=== PATIENT | male | born 1965 | race Caucasian/White ===

== ENCOUNTER 2024-12-04 06:07 | Inpatient (IN) | payer OTHER, SELFPAY ==
[2024-12-04 03:47] VITALS: BP 164/104
--- NOTE | 2024-12-04 03:56 | ED.GENMED ---
History of Present Illness
General
Chief Complaint: Skin Problem
Time Seen by Provider: 12/04/24 03:55
History of Present Illness
History of Present Illness:
FOCUSED PAST MEDICAL HISTORY
- High blood pressure, diabetes
REVIEW OF OLD RECORDS
- No old records will review in [facility]
Note:
CHIEF COMPLAINT(S)
Skin discoloration and swelling of the legs and buttock.
HISTORY OF PRESENT ILLNESS
The patient is a 59-year-old male who presented with concerns of discoloration and swelling of the skin primarily at the distal lower extremities with some involvement at upper buttock and upper extremities. The onset of symptoms began after
spending approximately half an hour in a hot tub on Friday. The patient reported noticing skin changes later that evening, described as pink and purple discoloration, which he initially attributed to overexposure to chlorine. The condition has since
persisted, with the addition of blistering on the legs and swelling. The patient denied associated fever, blanching, or taking any new medications, including anticoagulants or antibiotics. He has been applying topical cortisone cream. The patient
also takes 800 mg of ibuprofen for back pain. He reported no tick bites or other contributory factors.
PHYSICAL EXAM
-General: Appears fairly comfortable
-HEENT: Moist oral mucosa
-Neck: Excellent chin to chest, no meningeal signs
-Chest: Borderline tachycardic
-Neurologic: Excellent strength all extremities, no obvious coordination deficits
-Psychiatric: Appropriate mental status, normal insight and judgement
-Extremities: Rather extensive peripheral to the lower extremities with some edema noted at the left ankle and increased purpuric lesions to the lateral aspect of the ankle
-Skin: Extensive petechial/purpuric rash predominantly in the lower extremities bilaterally even more so and with more purpleish discoloration and edema left ankle and foot, there is petechiae noted to the upper buttocks
PLAN
Blood tests were ordered to check platelet counts and other relevant parameters. Further evaluation to determine the cause of the skin changes and associated symptoms.
DIFFERENTIAL DIAGNOSIS
The Differential Diagnosis includes, in no particular order and is not limited to:
- Vasculitis
- Erythema multiforme
- Contact dermatitis
- Drug reaction
- Cellulitis
- Thrombocytopenic purpura
- Viral exanthema
- Heat-induced rash
- Allergic reaction
- Autoimmune disorder
- Henoch-Erik�nlein purpura
- Chlorine rash
MEDICAL DECISION MAKING
-Complexity of Data Reviewed: Chronic conditions affecting care were queried with no significant chronic conditions identified by the patient. Differential Diagnosis includes:
- Vasculitis
- Erythema multiforme
- Contact dermatitis
- Drug reaction
- Cellulitis
- Thrombocytopenic purpura
- Viral exanthema
- Heat-induced rash
- Allergic reaction
- Autoimmune disorder
-Data:
Category 1
- Blood tests were ordered to check platelets and other parameters.
-Risk:
- Consideration of further diagnostic testing to determine the underlying etiology of the skin symptoms.
- Monitoring for potential serious causes such as vasculitis or thrombocytopenic purpura.
LABS
- White count 13.8, hemoglobin normal at 15.2, platelets normal at 243
The patient's white blood cell count is high at 13.8 and he is borderline tachycardic. Therefore lactic and blood cultures obtained. Blood cultures pending and lactic is 1.1. C-reactive protein is elevated at 25. Glucose is 186 and the patient
is a diabetic. Exam is not consistent with simply hot tub folliculitis. We talked about the possibility of some sort of vasculitis such as HSP. Give IV steroids. As the symptoms are so severe, we will plan to keep in the hospital for continued
IV steroids and further management by hospitalist team.
Feel hot tub folliculitis/pseudomonal infection is less likely. Chlorine rash is still a possibility however the rash to the lower extremities are markedly significant. He also denies any significant pruritus. No meningeal signs to suggest
meningococcemia.
Phy Exam
Physical Exam
Physical Exam:
See HPI
Course
Orders/Labs/Results
Orders:
Orders
12/04/24 04:05
Urinalysis Reflex To Culture Urgent
12/04/24 04:06
CRP [C-Reactive Protein] Urgent
Complete Blood Count/With Diff Urgent
Comprehensive Metabolic Panel Urgent
ESR [Erythrocyte Sed Rate] Urgent
12/04/24 04:53
Lactic Acid Q4H
Comment: CANCEL 2nd LACTIC ACID IF 1st LACTIC ACID IS LESS THAN 2
Blood Culture Q30M
PHI Source: Blood/Venous
Specimen Description:
12/04/24 05:06
Dexamethasone Sod Phosphate [Decadron] 10 mg IV NOW STA
12/04/24 05:22
Blood Culture Q30M
PHI Source: Blood/Venous
Specimen Description:
12/04/24 05:51
Admit/Transfer Patient As Directed
Co-Sign Provider:
Level of Care: Inpatient admission
Assign to:: Medical/Surgical
Physician / Group: Ken
Diagnosis: Vasculitis / Rash
Reason for Hospitalization: Vasculitis / Rash
Expected length of stay greater than two midnights?: Yes
ELOS- Estimated Length of Stay in days: 3
I certify the patient meets the requirements for IP care: Yes
Code Status As Directed
Resuscitation Status: Full Code
PRN Pain Medication Management As Directed
May give lesser potent ordered pain med per pt: Yes
preference::
Protocol:: Medication orders for pain may be administered in a
manner that supports deferring to patient preference
when the pt is:
- Requesting an ordered lesser potent pain medication.
Least to most potent pain medications are defined
as: acetaminophen < NSAID < tramadol < opioids
(morphine, oxycodone, hydromorphone).
- Requesting a lesser dose of the same medication IF
ORDERED.
- Requesting a less intrusive route of administration
if both routes are prescribed by the provider (PO <
IV).
12/04/24 08:30
Lactic Acid Q4H
Comment: CANCEL 2nd LACTIC ACID IF 1st LACTIC ACID IS LESS THAN 2
Abnormal Lab Results
12/04/24
04:06
WBC 13.8 H 10^3/uL
(4.8-10.8)
MCH 31.1 H pg
(27.0-31.0)
Absolute Lymphs (auto) 6.0 H 10^3/uL
(1.2-3.4)
Absolute Monos (auto) 0.9 H 10^3/uL
(0.1-0.6)
Chloride 108 H mmol/L
(98-107)
BUN 23 H mg/dl
(9-20)
Glucose 186 H mg/dl
(70-99)
ALT 51 H U/L
(0-50)
Alkaline Phosphatase 135 H U/L
(38-126)
C-Reactive Protein 24.70 H mg/L
(0.0-10.00)
12/04/24 04:06
12/04/24 04:06
Vital Signs
Initial and Last Documented VS:
Initial Vital Signs
Temp Pulse Resp BP Pulse Ox
36.5 C 99 20 164/104 97
12/04/24 03:47 12/04/24 03:47 12/04/24 03:47 12/04/24 03:47 12/04/24 03:47
Last Documented Vital Signs
Temp Pulse Resp BP Pulse Ox
36.5 C 99 20 164/104 97
12/04/24 03:47 12/04/24 03:47 12/04/24 03:47 12/04/24 03:47 12/04/24 03:56
*Pulse Oximetry
SaO2: 97
Patient hypoxic: no
*Critical Care Note
Total Time (30-74mins, 75-104mins- exclusive of procedures): Not Applicable
ED Attending Note
-
Portions of this chart may have been created with voice recognition software.� Occasional wrong word or��sound alike� substitutions may have occurred due to the inherent limitations of voice recognition software.
Discharge Plan
Departure
Patient Disposition: Admit
Date of Disposition: 12/04/24
Time of Disposition: 05:09
Presentation/result/management discussed w/ accepting MD/DO: Hospitalist
Patient with high blood pressure during this ER visit?: Yes
Discharge Problem:
Vasculitis
Interventions
Interventions:
*Risk Screen - Suicide Last Done: 12/04/24 03:47
*General Assessment Last Done: 12/04/24 03:47
*Neglect/Abuse Screening Last Done: 12/04/24 03:47
*ED- Fall Risk Assessment Last Done: 12/04/24 03:47
*ED COVID-19 Vaccine History Last Done: 12/04/24 03:47
ED-Skin Assessment Last Done: 12/04/24 04:00
[2024-12-04 04:17] LABS: Hematocrit 44.9 % (39.0-52.0); Hemoglobin 15.2 g/dL (13.0-18.0); Mean Corp Hgb Conc. 33.9 g/dL (33.0-37.0); Mean Corpuscular Volume 91.8 fL (80.0-94.0); Nucleated Red Blood Cells % 0 % (-); Platelet Count 243 10^3/uL (130-400); Red Cell Dist. Width 13.1 % (11.5-14.5)
[2024-12-04 04:54] LABS: ALT (SGPT) 51 U/L (0-50); AST (SGOT) 41 U/L (17-59); Albumin 4.1 g/dl (3.5-5.0); Alkaline Phosphatase 135 U/L (38-126); Blood Urea Nitrogen 23 mg/dl (9-20); Calcium 9.7 mg/dl (8.4-10.2); Carbon Dioxide 24 mmol/L (22-30); Chloride 108 mmol/L (98-107); Glucose 186 mg/dl (70-99); Potassium 4.4 mmol/L (3.5-5.1); Sodium 139 mmol/L (135-145); Total Protein 7.8 g/dl (6.3-8.2); eGFR > 60.00
[2024-12-04 04:57] LABS: C-Reactive Protein 24.70 mg/L (0.0-10.00)
[2024-12-04] MEDS: DECADRON 10 MG IV (05:22)
--- NOTE | 2024-12-04 05:56 | HPS.HSE ---
Family Physician
-
Family Physician:
Chief Complaint
-
LE Rash
History of Present Illness
Patient is a 59y M with PMH significant for hypertension and impaired glucose tolerance who presents to ED complaining of rash of both lower extremities. Patient states that he was in a hot tub on Friday evening for about 20-40 minutes total.
Upon entering the tub he had no symptoms, issues or complaints. Immediately after exiting, he noted a pink, spotted 'rash' at both ankles. He woke the next morning with darker skin lesions in slightly greater distribution. Over the next few days
his symptoms significantly increased. He developed dark purple discoloration of the skin on both legs spreading across the dorsum of the foot and across the anterior wesley. He describes a burning sensation - mostly in the L ankle.
There is swelling of the L foot and some blister formation at the lateral aspect of the L ankle which are not present on the RLE.
Patient has no systemic complaints. No fevers / chills, N/V. No severe pain in the LEs.
He denies any prior history of similar symptoms, rashes.
He states that he has been applying hydrocortisone cream and Neosporin at home with no significant improvement in his symptoms.
Patient does not see physicians on a regular basis.
He was prescribed a medications for HTN some time ago, but stopped this as it made him feel 'woozy'.
He currently takes no prescription medications. He takes ibuprofen and Benadryl PRN.
Medical History
Past Medical History
Past Medical History: Reports Other
Additional Past Medical History:
Hypertension
Impaired Glucose Tolerance
Generalized Anxiety / Insomnia
Past Surgical History: Reports None
Social History
Tobacco: Smoker (Current every day smoker. Approx 1 ppd for > 30 pack year total use.)
Alcohol: None
Drug: None
Family History
Family History: Not pertinent
Allergies / Home Medications
Allergies reflects when Allergies were last updated in [facility].
Home Medications with original date entered in [facility]
Allergy/Medication List:
Allergies
Allergy/AdvReac Type Severity Reaction Status Date / Time
No Known Allergies Allergy Verified 12/04/24 03:46
Home Medications
No Meds [No Current Medications] 12/04/24
Review of Systems
-
History Source: Patient
A 12 point ROS was completed and negative except as noted: Yes
Constitutional: Denies Fever, Fatigue or Chills
Respiratory: Denies Cough or Trouble Breathing
Cardiac: Denies Chest Pain or Palpitations
Abdomen/GI: Denies Abdominal Pain, Nausea, Vomiting, Diarrhea, Bloody Stools or Black Stools
: Denies Dysuria, Frequency or Flank Pain
Musculoskeletal: Reports Joint Pain (L ankle pain) and Edema
Skin: Reports Rash; Denies Itching
Neurological: Denies Dizzy or Headache
Physical Exam
Vital Signs
Vital Signs
Temp Pulse Resp BP Pulse Ox
97.7 F 99 20 164/104 97
12/04/24 03:47 12/04/24 03:47 12/04/24 03:47 12/04/24 03:47 12/04/24 03:56
Physical Exam
General: Other (59y M in no acute distress.)
HEENT: Moist mucous membranes, PERRLA and Other (Poor dentition.)
Respiratory: Clear; No Wheezes, Rales or Rhonchi
Cardiac: S1/S2 and Regular Rhythm; No Murmur
GI: Soft, Non Tender, Non Distended and Normal Bowel Sounds
Musculoskeletal: No Clubbing, No Cyanosis and Other (1+ edema L foot)
Skin: Rash (Scattered, raised skin lesions / folliculitis of L > R arm, thighs, buttocks areas.) and Other (Confluent ecchymosis / purpura b/l anterior shins with petechiae, few raised / dark lesions throughout. Not tender except at lateral L ankle
where there are also few, small bullae. No ulcerated lesions.)
Neuro: AO x 3
Laboratory Results
-
12/04/24 04:06
12/04/24 04:06
Laboratory Results
Lactic Acid 1.1 mmol/L (0.7-2.0) 12/04/24 04:53
Total Bilirubin 0.7 mg/dl (0.2-1.3) 12/04/24 04:06
AST 41 U/L (17-59) 12/04/24 04:06
ALT 51 U/L (0-50) H 12/04/24 04:06
Alkaline Phosphatase 135 U/L (38-126) H 12/04/24 04:06
Impression/Plan
-
A/P: Patient is a 59y M with PMH significant for hypertension and impaired glucose tolerance who presents to ED complaining of rash of both LEs.
Bilateral LE Rash
- Admit for further evaluation and treatment.
- Some areas on thighs / upper extremities (and initial description of LE per patient) appear consistent with folliculitis; however, current LE skin changes do not.
- Appearance of b/l LEs seems most c/w vasculitic process.
- No systemic infectious symptoms and no localized, severe pain to suggest necrotizing infectious process.
- CRP moderately elevated. ESR pending. Add ANCA.
- Initial dose of IV steroids given in the ED - continue with prednisone 40mg daily for now and follow for any clinical response.
- Patient may benefit from biopsy of the affected area for definitive diagnosis / guidance of treatment.
- Follow for any new / worsening symptoms or extension of currently affected area.
Benign Hypertension
- Patient notes that he stopped his HTN medication due to feeling 'woozy'. This was several years ago.
- BP elevated here in the ED.
- Follow for changes. Patient would likely benefit from standing medications for improved BP control.
Impaired Glucose Tolerance
- Follow glucose and cover with SSI if needed, especially while on systemic steroids.
- Check A1C.
DVT Prophylaxis: Lovenox
Code Status: Full
--- NOTE | 2024-12-04 07:38 | W.PN.HOSP.TC ---
Today's Communication/Plan
-
see A/P
Assessment / Plan
Assessment / Plan
HPI: 59 yo M with PMH significant for hypertension and impaired glucose tolerance who presented to ED complaining of rash of both lower extremities. Patient states that he was in a hot tub on Friday evening for about 20-40 minutes total. Upon
entering the tub he had no symptoms, issues or complaints. Immediately after exiting, he noted a pink, spotted 'rash' at both ankles. He woke the next morning with darker skin lesions in slightly greater distribution. Over the next few days his
symptoms significantly increased. He developed dark purple discoloration of the skin on both legs spreading across the dorsum of the foot and across the anterior wesley. He describes a burning sensation - mostly in the L ankle.
There is swelling of the L foot and some blister formation at the lateral aspect of the L ankle which are not present on the RLE.
Patient has no systemic complaints. No fevers / chills, N/V. No severe pain in the LEs.
He denies any prior history of similar symptoms, rashes.
He states that he has been applying hydrocortisone cream and Neosporin at home with no significant improvement in his symptoms.
Patient does not see physicians on a regular basis.
He was prescribed a medications for HTN some time ago, but stopped this as it made him feel 'woozy'.
He currently takes no prescription medications. He takes ibuprofen and Benadryl PRN.
A/P:
# Bilateral LE Rash, ? hot tub folliculitis with cellulitis vs vasculitis process
Initial description of LE per patient appears consistent with folliculitis; however, current LE skin changes appear more vasculitic
No systemic infectious symptoms and no localized, severe pain to suggest necrotizing infectious process.
CRP at 24, ESR WNL at 14
ANCA was sent, follow up
Initial dose of IV steroids given in the ED - continue with prednisone 40mg daily for now and follow for any clinical response.
Patient may benefit from biopsy of the affected area for definitive diagnosis / guidance of treatment.
Follow for any new / worsening symptoms or extension of currently affected area.
Start empiric Abx Vanc/Zosyn
ID CS
Wound care CS
# Benign Hypertension
Patient notes that he stopped his HTN medication due to feeling 'woozy'. This was several years ago.
BP elevated on admission, discussed with pt, agree with starting low dose Norvasc 2.5 mg daily
# Impaired Glucose Tolerance
Follow glucose and cover with SSI if needed, especially while on systemic steroids.
Check A1C.
DVT Prophylaxis: Lovenox SQ
Code Status: Full
Anticipated Discharge: > 48 hours
Subjective/Interval History
-
Date of Service: December 04, 2024
Objective Data
-
Labs:
Laboratory Results
12/04/24
04:06
WBC 13.8 H
Hgb 15.2
Hct 44.9
Plt Count 243
Sodium 139
Potassium 4.4
Chloride 108 H
Carbon Dioxide 24
BUN 23 H
Creatinine 0.8
Glucose 186 H
Calcium 9.7
Total Bilirubin 0.7
AST 41
ALT 51 H
Alkaline Phosphatase 135 H
Vital Signs:
Vital Signs
Temp Pulse Resp BP Pulse Ox
36.5 C 99 20 164/104 97
12/04/24 03:47 12/04/24 03:47 12/04/24 03:47 12/04/24 03:47 12/04/24 03:56
Review of Systems
-
History Source: Patient
Skin: Reports Rash (severe BL LE erythema )
Physical Exam
-
General: Well Developed, Well Nourished, No Apparent Distress, Comfortable, Conversant and Obese; Negative Respiratory Distress
HEENT: Normocephalic, Atraumatic, Nose Appears Normal and Ears Appear Normal; Negative Oxygen
Respiratory: Clear to Auscultation and Non Labored Respirations; Negative Accessory Resp Muscle Use
Cardiac: Regular Rhythm and S1/S2
GI: Soft, Nontender, Nondistended and Normal Bowel Sounds
Skin: Warm and Rash (BL LE)
Neuro: Awake, Alert, Oriented and AO x 3
Psych: Calm and Intact Judgement/Insight
Data Reviewed
-
Labs: Labs Reviewed by me
[2024-12-04 08:09] VITALS: BP 169/100
[2024-12-04 08:10] VITALS: BMI 36.7
--- NOTE | 2024-12-04 08:15 | PTCARENOTE ---
Received pt from ED via stretcher. Pt ambulated to bed with standby assist. AAOx3. Assessed and oriented to room. Pt verbalized understanding of call larry. Call larry within close reach. Blood pressure elevated, will recheck. Will continue to
monitor.
[2024-12-04 08:26] LABS: Glucose - Point of Care 215 mg/dl (70-99)
--- NOTE | 2024-12-04 08:36 | PHA.VAN.IN ---
Assessment
- Assessment
Renal Function: Appears similar to baseline
Renal Function may be Overestimated due to: bmi=36.7
Concomitant Antimicrobials: zosyn
AUC Dosing Plan
- Dosing Variables
Dosing Weight (kg): 122.697
Dosing CrCl (ml/min): 100
Vd coefficient (L/kg): 0.6
- Empiric Dosing
Initial / Loading Dose: 2000MG
Maintenance Regimen: 1500MG Q12H
Estimated AUC (mcg*h/mL): 497
Estimated Peak (mcg*h/mL): 31.4
Estimated Trough (mcg/ml): 12.5
Estimated Half Life (H): 7.9
- Monitoring
No levels ordered at this time: CONSIDER NEXT FEW DAYS
Pharmacokinetics Vancomycin I
- -
Patient Age: 59
Patient Sex: Male
Vancomycin Day #: 1
Indication: Skin And Soft Tissue
Requesting Provider: Dr. Grullon
Pertinent Antimicrobial Allergies:
nkda
Height / Weight:
Height 6 ft
Actual Weight 122.697 kg
IBW in k.6
- Vital Signs / Lab Results
Temp Pulse Resp BP Pulse Ox
98.8 F 88 17 169/100 97
12/04/24 08:09 12/04/24 08:09 12/04/24 08:09 12/04/24 08:09 12/04/24 08:09
Lab Results - Hematology
12/04/24
04:06
WBC 13.8 H
Lab Results - Chemistry
12/04/24
04:06
BUN 23 H
Creatinine 0.8
Albumin 4.1
12/04/24 12/04/24
04:53 08:30
Lactic Acid 1.1 Cancelled
[2024-12-04] MEDS: VANCOCIN 540 MG IV (09:18)
[2024-12-04] MEDS: NOVOLOG FLEXPEN-LOW RESISTANCE 2 UNITS SC (09:19)
[2024-12-04] MEDS: NORVASC 2.5 MG PO (09:25)
[2024-12-04] MEDS: FLUSH (NSS) 1 FLUSH IV (09:26)
--- NOTE | 2024-12-04 10:27 | PTCARENOTE ---
Pt requested nicotine patch, made aware.
[2024-12-04 10:45] VITALS: BP 163/97
[2024-12-04] MEDS: NICODERM TRANSDERMAL 14 MG TRANSDERM (11:22)
--- NOTE | 2024-12-04 11:27 | PTCARENOTE ---
Blood pressure rechecked, continues to be elevated, MD made aware.
[2024-12-04 11:42] LABS: Glucose - Point of Care 270 mg/dl (70-99)
[2024-12-04] MEDS: ZOSYN 50 IV (11:46)
[2024-12-04] MEDS: NOVOLOG FLEXPEN-LOW RESISTANCE 3 UNITS SC (12:36)
--- NOTE | 2024-12-04 12:47 | CON.ID ---
Consultation
-
Date/Time Consultation Requested: December 04, 2024 0801
Date/Time Consultation Performed: December 04, 2024 1250
Requesting Provider: Dr. Marissa Grullon
Performing Provider: Dr. Waleska Bain
Reason for Consultation: Vasculitis, recent hot tub
Chief Complaint / Past History
Chief Complaint
Worsening Rash
History of Present Illness
59-year-old male with history of hypertension who presented to the ER early this morning 0400 for progression of bilateral leg lower extremity rash. He states he went to [place] on and sat in the hot tub for about 40 minutes. There are
also other part he goes in and out of the hot tub when patient came out of the hot tub he noted red dots on his ankles. The next morning there were more dots around the ankle. Rash continued to expand. On and Friday, the rash rapidly
progressed up his leg and became dark purple in color. Friday, he noted red dots on his buttocks, lower abdomen, few on his chest, and bilateral upper extremities. He also noted leg swelling especially the right foot and ankle. The rash is now on
pruritic, but his skin feels very sensitive with a burning-like sensation. No fevers or chills. No one else at the [employer] party with similar rash. In the ER he was afebrile. White count 13.8. He received a dose of dexamethasone then prednisone. He
noted improvement after the steroid with decreased edema and decreased burning sensation. He is also currently on vancomycin and Zosyn added later to this morning. Denies new medicines.
Past History
Additional Past Medical History:
HTN
Anxiety
Allergy History:
No Known Allergies Allergy (Verified 12/04/24 03:46)
Medications Reviewed: Yes
Current Antibiotics:
Vanco
Zosyn
Social History
Tobacco: Smoker
Alcohol: None
Drug: None
Family History
Family History: Not Pertinent
Review of Systems
Review of Systems
General: Negative Fever, Chills or Change in Appetite
Cardiovascular: Negative Chest Pain or Dyspnea
Respiratory: Negative Dyspnea or Cough
Gasteroenterology: Negative Nausea, Vomiting or Diarrhea
Genital / Urological: Negative Dysuria or Flank Pain
Endocrine: Negative Weakness
Neurological: Negative Dizziness
All systems: All other systems were reviewed and were negative
Vital Signs
Temp Pulse Resp BP Pulse Ox
98.8 F 91 17 163/97 97
12/04/24 08:09 12/04/24 10:45 12/04/24 08:09 12/04/24 10:45 12/04/24 10:45
Physical Exam
Physical Exam
Constitutional: No Acute Distress and Comfortable
Eyes: No Conjunctival Hemorrhage and Sclera Anicteric
Cardiovascular: Regular Rate and S1/S2
Pulmonary: Clear
Gastrointestinal: Soft, Non Tender, Non Distended and Normal Bowel Sounds
Genito-Urinary: Negative CVA Tenderness
Extremities: Edema (L foot > Right foot)
Skin: Rash (Dark purple petechiae which coalesced dorsum of b/l foot extending up the bilateral wesley,some palplable. Red to purple petechia scattered throughout bilateral thighs to buttocks, to waist line and upper extremities. Left lateral ankle
with small blisters. )
Neurological: AO x 3
Lab / Diagnostic Study Results
12/04/24 04:06
12/04/24 04:06
Abs Immat Gran (auto) 0.0 10^3/uL (0-0.05) 12/04/24 04:06
Absolute Neuts (auto) 6.5 10^3/uL (1.4-6.5) 12/04/24 04:06
Absolute Lymphs (auto) 6.0 10^3/uL (1.2-3.4) H 12/04/24 04:06
Absolute Monos (auto) 0.9 10^3/uL (0.1-0.6) H 12/04/24 04:06
Absolute Basos (auto) 0.1 10^3/uL (0-0.2) 12/04/24 04:06
Immature Gran % 0.3 % (0-0.5) 12/04/24 04:06
Neutrophils % 47.0 % (42.2-75.2) 12/04/24 04:06
Lymphocytes % 43.8 % (20.5-51.1) 12/04/24 04:06
Monocytes % 6.3 % (1.7-9.3) 12/04/24 04:06
Eosinophils % 1.9 % (0-6) 12/04/24 04:06
Basophils % 0.7 % (0-2) 12/04/24 04:06
ESR 14 mm/hour (0-20) 12/04/24 04:06
Lactic Acid Cancelled 12/04/24 08:30
C-Reactive Protein 24.70 mg/L (0.0-10.00) H 12/04/24 04:06
Microbiology Results
Micro:
12/04/24 05:22 Blood Culture - Pending
Blood/Venous
12/04/24 04:53 Blood Culture - Pending
Blood/Venous
Assessment / Plan
# Suspect Pseudomonas hot-tub folliculitis
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
# Leukocytosis
- Hot tub folliculities is often serl-limited, However in his case will treat with po cipro due to extensive involvement.
- DC VAnco/Zosyn
- Continue steroid.
[2024-12-04 15:54] VITALS: BP 144/94
[2024-12-04 17:01] LABS: Glucose - Point of Care 340 mg/dl (70-99)
[2024-12-04] MEDS: LOVENOX 40 MG SC (17:14)
[2024-12-04] MEDS: NOVOLOG FLEXPEN-LOW RESISTANCE 4 UNITS SC (17:14)
[2024-12-04 18:38] LABS: Urine Character Clear (Clear)
[2024-12-04] MEDS: CIPRO 500 MG PO (20:41)
[2024-12-04 21:43] LABS: Glucose - Point of Care 321 mg/dl (70-99)
[2024-12-04] MEDS: MELATONIN 10 MG PO (22:29)
[2024-12-04 23:00] VITALS: BP 155/87
[2024-12-05 05:57] LABS: Hematocrit 42.0 % (39.0-52.0); Hemoglobin 13.8 g/dL (13.0-18.0); Mean Corp Hgb Conc. 32.9 g/dL (33.0-37.0); Mean Corpuscular Volume 92.5 fL (80.0-94.0); Platelet Count 226 10^3/uL (130-400); Red Cell Dist. Width 13.0 % (11.5-14.5)
[2024-12-05 06:25] LABS: ALT (SGPT) 34 U/L (0-50); AST (SGOT) 23 U/L (17-59); Albumin 3.8 g/dl (3.5-5.0); Alkaline Phosphatase 91 U/L (38-126); Blood Urea Nitrogen 22 mg/dl (9-20); Calcium 9.6 mg/dl (8.4-10.2); Carbon Dioxide 23 mmol/L (22-30); Chloride 111 mmol/L (98-107); Estimated Creatinine Clearance > 125 ml/min; Glucose 213 mg/dl (70-99); Potassium 4.4 mmol/L (3.5-5.1); Sodium 139 mmol/L (135-145); Total Protein 7.1 g/dl (6.3-8.2); eGFR > 60.00
[2024-12-05 07:36] VITALS: BP 131/81
[2024-12-05 07:53] LABS: Glucose - Point of Care 225 mg/dl (70-99)
[2024-12-05] MEDS: CIPRO 500 MG PO ×2 (08:49→20:15)
[2024-12-05] MEDS: DELTASONE 40 MG PO (08:49)
[2024-12-05] MEDS: NORVASC 2.5 MG PO (08:49)
[2024-12-05] MEDS: NOVOLOG FLEXPEN-LOW RESISTANCE 2 UNITS SC (08:50)
[2024-12-05] MEDS: NICODERM TRANSDERMAL 14 MG TRANSDERM (08:50)
[2024-12-05] MEDS: MOTRIN 600 MG PO (09:02)
--- NOTE | 2024-12-05 09:17 | CM ---
Pt is a 59yo male, uninsured. Pt is (I) amb and adls at baseline.
He came to ED and admitted with rash on LE which started after he was in a hot tub with friends. Rash has worsened and pt dx with vasculitis; blood cultures are pending.
--- NOTE | 2024-12-05 09:19 | W.PN.HOSP.TC ---
Today's Communication/Plan
-
see A/P
Assessment / Plan
Assessment / Plan
HPI: 59 yo M with PMH significant for hypertension and impaired glucose tolerance who presented to ED complaining of rash of both lower extremities. Patient states that he was in a hot tub on Friday evening for about 20-40 minutes total. Upon
entering the tub he had no symptoms, issues or complaints. Immediately after exiting, he noted a pink, spotted 'rash' at both ankles. He woke the next morning with darker skin lesions in slightly greater distribution. Over the next few days his
symptoms significantly increased. He developed dark purple discoloration of the skin on both legs spreading across the dorsum of the foot and across the anterior wesley. He describes a burning sensation - mostly in the L ankle.
There is swelling of the L foot and some blister formation at the lateral aspect of the L ankle which are not present on the RLE.
Patient has no systemic complaints. No fevers / chills, N/V. No severe pain in the LEs.
He denies any prior history of similar symptoms, rashes.
He states that he has been applying hydrocortisone cream and Neosporin at home with no significant improvement in his symptoms.
Patient does not see physicians on a regular basis.
He was prescribed a medications for HTN some time ago, but stopped this as it made him feel 'woozy'.
He currently takes no prescription medications. He takes ibuprofen and Benadryl PRN.
A/P:
# Bilateral LE Rash, suspect hot tub Pseudomonas folliculitis
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
# Leukocytosis
CRP at 24, ESR WNL at 14
Cont PO Cipro, off Vanco/Zosyn
ANCA was sent, follow up
Continue steroid prednisone 40mg daily
Appreciate ID
Wound care consulted
# Benign Hypertension
Patient notes that he stopped his HTN medication due to feeling 'woozy'. This was several years ago.
Started low dose Norvasc 2.5 mg daily , BP improved
# Impaired Glucose Tolerance
# h/o prediabtes
Follow glucose and cover with SSI if needed, especially while on systemic steroids.
Check A1C.
# Cigarette smoking
cont nicotine patch while in the hospital
recc nicotine gum outpt
# Obesity
BMI 36
DVT Prophylaxis: Lovenox SQ
Code Status: Full
DW RN
total time 51 min
Anticipated Discharge: 24 - 48 hours
Subjective/Interval History
-
Date of Service: December 05, 2024
Objective Data
-
Labs:
Laboratory Results
12/05/24
05:28
WBC 17.9 H
Hgb 13.8
Hct 42.0
Plt Count 226
Sodium 139
Potassium 4.4
Chloride 111 H
Carbon Dioxide 23
BUN 22 H
Creatinine 0.7
Glucose 213 H
Calcium 9.6
Total Bilirubin 0.7
AST 23
ALT 34
Alkaline Phosphatase 91
Vital Signs:
Vital Signs
Temp Pulse Resp BP Pulse Ox
36.9 C 83 16 131/81 95
12/05/24 07:36 12/05/24 08:49 12/05/24 07:36 12/05/24 08:49 12/05/24 07:36
I&O
12/04/24 12/05/24 12/06/24
06:59 06:59 06:59
Intake Total 1220 / 1220
Output Total 750 / 750
Balance 470 / 470
Review of Systems
-
History Source: Patient
Skin: Reports Rash
Physical Exam
-
General: Well Developed, Well Nourished, No Apparent Distress, Comfortable, Conversant and Obese; Negative Respiratory Distress
HEENT: Normocephalic, Atraumatic, Nose Appears Normal and Ears Appear Normal; Negative Oxygen
Respiratory: Clear to Auscultation and Non Labored Respirations; Negative Accessory Resp Muscle Use
Cardiac: Regular Rhythm and S1/S2
GI: Soft, Nontender, Nondistended and Normal Bowel Sounds
Skin: Warm and Rash (BL LE)
Neuro: Awake, Alert, Oriented and AO x 3
Psych: Calm and Intact Judgement/Insight
Data Reviewed
-
Labs: Labs Reviewed by me
[2024-12-05 10:32] LABS: Glycohemoglobin (HgbA1c) 8.3 % (4.0-5.6)
[2024-12-05 11:27] LABS: Glucose - Point of Care 283 mg/dl (70-99)
--- NOTE | 2024-12-05 12:48 | W.PN.ID1 ---
Date of Service
Date of Service: December 05, 2024
Today's Communication
Continue cipro and steroid.
Assessment / Plan
# Suspect Pseudomonas hot-tub folliculitis
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
# Leukocytosis increase due to steroid
- Hot tub folliculitis is often serf-limited. However in his case will treat with po cipro due to extensive involvement.
Continue cipro 500mg po bid x 7d through 12/10/24. Check EKG in am to follow QTc
- Continue steroid.
Chief Complaint
-: Other
Subjective / Review of Systems
Legs no longer 'burning' as much. Can bear weight and ambulate now.
Vital Signs / Physical Exam
Vital Signs
Vital Signs
Temp Pulse Resp BP Pulse Ox
98.4 F 83 16 131/81 95
12/05/24 07:36 12/05/24 08:49 12/05/24 07:36 12/05/24 08:49 12/05/24 07:36
Physical Exam
Constitutional: No Acute Distress, Comfortable and Obese
Cardiovascular: Regular Rate and S1/S2
Pulmonary: Clear
Gastrointestinal: Soft, Non Tender and Non Distended
Extremities: Edema (R foot >L foot decreasing)
Skin: Rash (Dark purple petechiae which coalesced dorsum of b/l foot extending up the bilateral wesley,some palpable. Red to purple petechia scattered throughout bilateral thighs to buttocks, to waist line and upper extremities. Left lateral ankle
with small blisters. )
Neurological: AO x 3
Objective Data
Lab Data
Lab Results
12/05/24 05:28
12/05/24 05:28
ESR 14 mm/hour (0-20) 12/04/24 04:06
Estimated Creat Clear > 125 ml/min 12/05/24 05:28
Lactic Acid Cancelled 12/04/24 08:30
Total Bilirubin 0.7 mg/dl (0.2-1.3) 12/05/24 05:28
AST 23 U/L (17-59) 12/05/24 05:28
ALT 34 U/L (0-50) 12/05/24 05:28
Alkaline Phosphatase 91 U/L (38-126) 12/05/24 05:28
C-Reactive Protein 24.70 mg/L (0.0-10.00) H 12/04/24 04:06
Most recent labs reviewed.
Micro Results:
12/04/24 05:22 Blood Culture - Preliminary
Blood/Venous No Growth in 24 hours- Final report to follow
12/04/24 04:53 Blood Culture - Preliminary
Blood/Venous No Growth in 24 hours- Final report to follow
Care Review
Plan reviewed with: Physician (Dr. Grullon)
[2024-12-05] MEDS: NOVOLOG FLEXPEN-LOW RESISTANCE 3 UNITS SC (14:58)
[2024-12-05 15:04] VITALS: BP 147/96
[2024-12-05 16:30] LABS: Hepatitis C Antibody Negative (Negative)
[2024-12-05 17:24] LABS: Glucose - Point of Care 312 mg/dl (70-99)
[2024-12-05] MEDS: LOVENOX 40 MG SC (17:42)
[2024-12-05] MEDS: NOVOLOG FLEXPEN-LOW RESISTANCE 4 UNITS SC (17:42)
[2024-12-05] MEDS: MELATONIN 10 MG PO (20:15)
[2024-12-05 21:35] LABS: Glucose - Point of Care 266 mg/dl (70-99)
[2024-12-06 05:49] LABS: Hematocrit 41.3 % (39.0-52.0); Hemoglobin 14.3 g/dL (13.0-18.0); Mean Corp Hgb Conc. 34.6 g/dL (33.0-37.0); Mean Corpuscular Volume 90.6 fL (80.0-94.0); Nucleated Red Blood Cells % 0 % (-); Platelet Count 192 10^3/uL (130-400); Red Cell Dist. Width 13.0 % (11.5-14.5)
[2024-12-06 06:13] LABS: Blood Urea Nitrogen 22 mg/dl (9-20); Calcium 8.9 mg/dl (8.4-10.2); Carbon Dioxide 23 mmol/L (22-30); Chloride 109 mmol/L (98-107); Estimated Creatinine Clearance > 125 ml/min; Glucose 173 mg/dl (70-99); Potassium 3.9 mmol/L (3.5-5.1); Sodium 138 mmol/L (135-145); eGFR > 60.00
[2024-12-06 07:30] VITALS: BP 133/81
[2024-12-06 07:37] LABS: Glucose - Point of Care 136 mg/dl (70-99)
[2024-12-06] MEDS: NOVOLOG FLEXPEN-LOW RESISTANCE SC (08:37)
[2024-12-06] MEDS: NORVASC 2.5 MG PO (08:38)
[2024-12-06] MEDS: NICODERM TRANSDERMAL 14 MG TRANSDERM (08:39)
[2024-12-06] MEDS: CIPRO 500 MG PO (08:39)
[2024-12-06] MEDS: DELTASONE 40 MG PO (08:39)
[2024-12-06] MEDS: SENOKOT-S 1 TABLET PO (09:15)
[2024-12-06] MEDS: VISBIOME 1 CAP PO (09:15)
--- NOTE | 2024-12-06 09:22 | W.PN.HOSP.TC ---
Today's Communication/Plan
-
see A/P
DC today
Assessment / Plan
Assessment / Plan
HPI: 59 yo M with PMH significant for hypertension and impaired glucose tolerance who presented to ED complaining of rash of both lower extremities. Patient states that he was in a hot tub on Friday evening for about 20-40 minutes total. Upon
entering the tub he had no symptoms, issues or complaints. Immediately after exiting, he noted a pink, spotted 'rash' at both ankles. He woke the next morning with darker skin lesions in slightly greater distribution. Over the next few days his
symptoms significantly increased. He developed dark purple discoloration of the skin on both legs spreading across the dorsum of the foot and across the anterior wesley. He describes a burning sensation - mostly in the L ankle.
There is swelling of the L foot and some blister formation at the lateral aspect of the L ankle which are not present on the RLE.
Patient has no systemic complaints. No fevers / chills, N/V. No severe pain in the LEs.
He denies any prior history of similar symptoms, rashes.
He states that he has been applying hydrocortisone cream and Neosporin at home with no significant improvement in his symptoms.
Patient does not see physicians on a regular basis.
He was prescribed a medications for HTN some time ago, but stopped this as it made him feel 'woozy'.
He currently takes no prescription medications. He takes ibuprofen and Benadryl PRN.
A/P:
# Bilateral LE Rash, suspect hot tub Pseudomonas folliculitis
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
# Leukocytosis
CRP at 24, ESR WNL at 14
Cont PO Cipro 500mg po bid x 7d through 12/10/24 per ID; off Vanco/Zosyn
ANCA was sent, follow up
Continue steroid prednisone 40mg daily with taper outpt
Appreciate ID
Wound care consulted
# Benign Hypertension
Patient notes that he stopped his HTN medication due to feeling 'woozy'. This was several years ago.
Started low dose Norvasc 2.5 mg daily , cont
BP improved
# Diabetes, new diagnosis
A1C 8.3%
Start low dose metformin 500 BID, informed of S/E
Diabetes SERVICE INSPECTOR CS for education and monitor instruction
Dietary CS for carb control diet
# Cigarette smoking
cont nicotine patch while in the hospital
recc nicotine gum outpt
# Obesity
BMI 36
DVT Prophylaxis: Lovenox SQ
Code Status: Full
DW ID
total time 51 min
Anticipated Discharge: Today
Subjective/Interval History
-
Date of Service: December 06, 2024
Objective Data
-
Labs:
Laboratory Results
12/06/24
05:13
WBC 17.2 H
Hgb 14.3
Hct 41.3
Plt Count 192
Sodium 138
Potassium 3.9
Chloride 109 H
Carbon Dioxide 23
BUN 22 H
Creatinine 0.6 L
Glucose 173 H
Calcium 8.9
Vital Signs:
Vital Signs
Temp Pulse Resp BP Pulse Ox
36.6 C 74 14 133/81 95
12/06/24 07:30 12/06/24 08:38 12/06/24 07:30 12/06/24 08:38 12/06/24 07:30
I&O
12/05/24 12/06/24 12/07/24
06:59 06:59 06:59
Intake Total 1220 / 1220 1800 / 1800
Output Total 750 / 750
Balance 470 / 470 1800 / 1800
Review of Systems
-
History Source: Patient
Skin: Reports Rash
Physical Exam
-
General: Well Developed, Well Nourished, No Apparent Distress, Comfortable, Conversant and Obese; Negative Respiratory Distress
HEENT: Normocephalic, Atraumatic, Nose Appears Normal and Ears Appear Normal; Negative Oxygen
Respiratory: Clear to Auscultation and Non Labored Respirations; Negative Accessory Resp Muscle Use
Cardiac: Regular Rhythm and S1/S2
GI: Soft, Nontender, Nondistended and Normal Bowel Sounds
Skin: Warm and Rash (BL LE)
Neuro: Awake, Alert, Oriented and AO x 3
Psych: Calm and Intact Judgement/Insight
Data Reviewed
-
Labs: Labs Reviewed by me
--- NOTE | 2024-12-06 09:58 | W.PN.ID1 ---
Date of Service
Date of Service: December 06, 2024
Today's Communication
Continue cipro 500mg po bid x 7d through 12/10/24.
Assessment / Plan
# Pseudomonas hot-tub folliculitis, improving
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
# Leukocytosis increase due to steroid
- Hot tub folliculitis is often serf-limited. However in his case will treat with po cipro due to extensive involvement.
Continue cipro 500mg po bid x 7d through 12/10/24. QTc 444.
Chief Complaint
-: Other
Subjective / Review of Systems
Rash better.
Vital Signs / Physical Exam
Vital Signs
Vital Signs
Temp Pulse Resp BP Pulse Ox
97.8 F 74 14 133/81 95
12/06/24 07:30 12/06/24 08:38 12/06/24 07:30 12/06/24 08:38 12/06/24 07:30
Physical Exam
Constitutional: No Acute Distress, Comfortable and Obese
Cardiovascular: Regular Rate and S1/S2
Pulmonary: Clear
Gastrointestinal: Soft, Non Tender and Non Distended
Extremities: Edema (R foot >L foot decreasing)
Skin: Rash (Decreasing Dark purple petechiae which coalesced dorsum of b/l foot extending up the bilateral wesley,some palpable. Decreasing Red to purple petechia scattered throughout bilateral thighs to buttocks, to waist line and upper extremities.
Left lateral ankle with small blisters. )
Neurological: AO x 3
Objective Data
Lab Data
Lab Results
12/06/24 05:13
12/06/24 05:13
ESR 14 mm/hour (0-20) 12/04/24 04:06
Estimated Creat Clear > 125 ml/min 12/06/24 05:13
Lactic Acid Cancelled 12/04/24 08:30
Total Bilirubin 0.7 mg/dl (0.2-1.3) 12/05/24 05:28
AST 23 U/L (17-59) 12/05/24 05:28
ALT 34 U/L (0-50) 12/05/24 05:28
Alkaline Phosphatase 91 U/L (38-126) 12/05/24 05:28
C-Reactive Protein 24.70 mg/L (0.0-10.00) H 12/04/24 04:06
Most recent labs reviewed.
Micro Results:
12/04/24 05:22 Blood Culture - Preliminary
Blood/Venous No Growth in 48 hours- Final report to follow
12/04/24 04:53 Blood Culture - Preliminary
Blood/Venous No Growth in 48 hours- Final report to follow
Care Review
Plan reviewed with: Physician (Dr. Grullon)
[2024-12-06] MEDS: GLUCOPHAGE 500 MG PO (10:46)
--- NOTE | 2024-12-06 11:05 | CM ---
Pt is cleared for discharge today. CM provided pt with information about the [facility] services; he is calling there now to get set up to be seen there.
Plan: Discharge to home today. Pt will follow up with the [facility].
--- NOTE | 2024-12-06 11:16 | WOUNDNOTE ---
[facility] RN note: Patient admitted with vasculitis/rash, hot tub folliculitis.
See H&P for complete history.
PMH: HTN, anxiety, insomnia, smoker.
Wound Location and type/assessment: Patient admitted with: purpura rash with blisters L lateral ankle, one is broken. Scattered pinpoint red/purple rash thighs and arms, upper buttocks area. Patient reports rash is improved especially on Le's.
Patient is on prednisone and Cipro.
Appetite: good.
Pressure redistribution devices in place: [employer] Accumax. Patient is ambulatory.
Plan: L lateral ankle dressing changed. Instructed patient local care with non stick dressing until dried/healed. Instructed hand hygiene with local care. RN Waleska was in during visit.
Will confirm orders with Dr. Grullon.
Care plan to be updated. Will sign off. Call if needed.
Recommend follow up at wound care center upon discharge if needed.
[2024-12-06 11:48] LABS: Glucose - Point of Care 230 mg/dl (70-99)
--- NOTE | 2024-12-06 11:56 | WOUNDNOTE ---
L BUTTOCKS/LOWER BACK
--- NOTE | 2024-12-06 11:57 | WOUNDNOTE ---
R BUTTOCKS (UPPER)/FLANK
--- NOTE | 2024-12-06 12:53 | W.DCSUMMARY ---
Discharge Summary
Discharge Data
Date of Admission: 12/04/24
Date of Discharge: 12/06/24
Total time spent discharging patient (in min): 40
-
Pending Results: No
Hospital Course
Principal Diagnosis:
Bilateral LE rash, suspect hot tub Pseudomonas folliculitis
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
Benign Hypertension
Cigarette smoking/nicotine dependence
Chronic Diagnoses:�
Hypertension, not on medication prior to this admission
Obesity, BMI 36
New diagnosis diabetes (A1C 8.3%)
Consultations:�
Infectious disease
Procedures:�
None
Clinical course:�
This is a 59 year old male with past medical history as stated above, who does not see a doctor routinely, presented with lower extremity rash following hot tub exposure.
Problem 1:
Bilateral LE Rash, suspect hot tub Pseudomonas folliculitis.
This was associated with leukocytoclastic vasculitis thought to be triggered by folliculitis.
Patient was seen by ID, and was recommended to continue with antibiotic Cipro 500mg po bid x 7d through 12/10/24.
ANCA antibodies were sent, results were still pending at the time of discharge. These can be followed up outpatient.
He was started with prednisone 40 mg daily, and can continue with prednisone taper outpatient.
Problem 2:
Benign Hypertension.
According to patient, he stopped taking antihypertensive a few years ago due to feeling 'woozy'.
He was started with low dose Norvasc 2.5 mg daily, which he tolerated well and can continue outpatient.
Problem 3:
Diabetes, new diagnosis.
A1C at 8.3%.
He was started with low dose metformin 500 BID, and was provided with blood glucose monitoring and education prior to discharge.
He has also been educated on diabetic diet.
Problem 4:
Cigarette smoking.
He was counseled on cigarette cessation.
He can continue with nicotine gum outpatient.
As for the rest of his medical problems, they were stable during his hospital stay.
Discharge Plan
-
Patient Disposition: Home (Routine Discharge)
Discharge Diagnosis/Procedures: Bilateral LE rash suspect hot tub Pseudomonas folliculitis;
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
Benign Hypertension;
Diabetes (new diagnosis, A1C 8.3%);
Cigarette smoking
Condition: Good
Diet: As tolerated and Diabetic, Carb Controlled
Activity: As tolerated
Driving Restrictions: As prior to admission
Blood Work: CBC and BMP in 1 week, result to PCP
Activity Restrictions/Additional Instructions:
If taking antacid, iron, zinc, magnesium, aluminum, calcium, or sucralfate, take these products 6 hours before or 2 hours after ciprofloxacin.
Referrals:
NONE,* [Family Provider, Internal Medicine] - in less than 1 week
Prescriptions:
New
ciprofloxacin HCl 500 mg Tablet
500 mg PO BID 5 Days Qty: 10 0RF
metformin 500 mg Tablet
500 mg PO BID@0800,1700 Qty: 60 0RF
amlodipine 2.5 mg Tablet
2.5 mg PO DAILY Qty: 30 0RF
Probiotic 15 billion cell capsule, sprinkle
1 cap PO DAILY 10 Days Qty: 10 0RF
nicotine (polacrilex) 4 mg gum
4 mg buccal Q8H PRN (Reason: nicotine cravings) Qty: 20 0RF
(DME) blood-glucose meter [Accu-Chek Guide Glucose Meter] Misc
Qty: 1 0RF
Rx Instructions:
As Directed
(DME) Accu-Chek Guide test strips Strip
Qty: 100 0RF
Rx Instructions:
As Directed
(DME) lancets [Accu-Chek Softclix Lancets] Misc
Qty: 200 0RF
Rx Instructions:
As Directed
(DME) blood-glucose meter [[employer] All-In-One Meter] Kit
Qty: 1 0RF
Rx Instructions:
As Directed
prednisone 10 mg Tablet
See Rx Instructions .ROUTE .COMPLEX Qty: 30 0RF
Rx Instructions:
Take By Mouth:
40 mg daily x3 days, 30 mg daily x3 days,
20 mg daily x3 days, 10 mg daily x3 days.
(DME) CBC with diff
See Rx Instructions .Route .MEDSUPPLY Qty: 1 0RF
Rx Instructions:
12/10 to 12/17, result to PCP
# folliculitis
(DME) BMP
See Rx Instructions .Route .MEDSUPPLY Qty: 1 0RF
Rx Instructions:
12/10 to 12/17, result to PCP
# folliculitis
Continued
ibuprofen [IBU] 800 mg Tablet
1 mg PO 4-8XD PRN (Reason: back pain)
melatonin 10 mg Tablet
10 mg PO HS PRN (Reason: sleep)
Discharge Orders:
Discharge Patient (As Directed); Ordered 12/06/24
Ordered By: Sarah Grullon
Discharge Date and Time
Print Language: POLISH
[2024-12-06] MEDS: NOVOLOG FLEXPEN-LOW RESISTANCE 2 UNITS SC (13:03)
[2024-12-06 14:51] LABS: Serine Protease-3, IgG 0 AU/mL (0-19)
[2024-12-06 14:53] VITALS: BP 163/72
--- NOTE | 2024-12-06 17:06 | PTCARENOTE ---
12/06/2024 I met with patient to review diabetes management.
States he is newly diagnosed, was aware he had prediabetes in the past.
I educated on physiology of T2D, organ damage, managing with medications, monitoring BG, nutrition, activity, sleep and managing stress. I reinforced signs of hyperglycemia, hypoglycemia and hypoglycemia protocol; BS parameters and recommended HbA1c
goals, glucometer and CGM instructions, glucose tracker, medic alert bracelet and outpatient DSME program. Written material provided.
I provided patient with a [employer] glucometer sample kit. Provided verbal instructions on proper blood sugar testing technique, and demonstration with patient�s participation.
He states he has an appointment to see a provider at the [facility] tomorrow. . Requested a prescription for blood sugar testing supplies to be sent to his pharmacy on record. Patient verbalized understanding.
== END 2024-12-06 14:55 | disposition home or self-care (01) | DRG 607 ==
LOC: 3 WEST ACU 06:07
PROVIDERS: ADMITTING PHYSICIAN Hospitalist; ATTENDING PHYSICIAN Internal Medicine; CONSULT PHYSICIAN Internal Medicine Infectious Disease; EMERGENCY PHYSICIAN Emergency Medicine
DX: L73.9 Follicular disorder, unspecified (principal); M31.0 Hypersensitivity angiitis; I10 Essential (primary) hypertension; F17.210 Nicotine dependence, cigarettes, uncomplicated; E11.9 Type 2 diabetes mellitus without complications; F41.1 Generalized anxiety disorder; E66.9 Obesity, unspecified; Z68.36 Body mass index [BMI] 36.0-36.9, adult; B96.5 Pseudomonas (aeruginosa) (mallei) (pseudomallei) as the cause of diseases classified elsewhere
CPT/HCPCS: 80048; 80053; 81003; 82248; 82962; 83036; 83516; 83605; 85025; 85027; 85652; 86140; 86803; 87040; 93005; 96374; 96375; 99285; 99406